=== PATIENT | female | born 1965 | race Asian ===

== ENCOUNTER 2018-07-20 21:00 | Emergency (ER) | payer OTHER ==
[~2018-07-20] VITALS: Ht 152.4 cm; Wt 54.5 kg
[2018-07-20 22:55] LABS: BASOPHILS % 0.6 % (0.0-2.0); CLARITY URINE CLEAR (CLEAR); COLOR URINE YELLOW (YELLOW); EOSINOPHILS % 1.9 % (0.0-5.0); HEMATOCRIT. 38.8 % (36.0-48.0); HEMOGLOBIN. 13.2 g/dL (12.0-16.0); KETONES URINE NEGATIVE (NEGATIVE); LEUKOCYTE ESTERASE URINE NEGATIVE (NEGATIVE); LYMPHOCYTES % 45.1 % (20.0-50.0); MEAN CORPUSCULAR HEMOGLOBIN 29.3 pg (28.0-32.0); MEAN CORPUSCULAR VOLUME 86.2 fL (81.0-99.0); MEAN PLATELET VOLUME 7.6 fl (7.4-10.4); MONOCYTES % 5.9 % (2.0-8.0); NEUTROPHILS % 46.5 % (40.0-76.0); NITRITE URINE NEGATIVE (NEGATIVE); OCCULT BLOOD URINE 1+ (NEGATIVE); PH URINE 5.5 (4.5-8.0); PLATELET 253 x1000/uL (130-400); PROTEIN URINE NEGATIVE (NEGATIVE); RED BLOOD CELL COUNT 4.51 mill/uL (4.2-5.4); RED CELL DISTRIBUTION WIDTH 13.4 % (11.6-14.6); UROBILINOGEN URINE 0.2 E.U./dL (0.2-1.0)
[2018-07-20 23:01] LABS: CHLORIDE 105 mEq/L (98-107)
[2018-07-20] MEDS ORDERED: AMLODIPINE 5MG TABLET PO ONE (23:15)
[2018-07-21] MEDS ORDERED: TRIAMTERENE/HYDROCHLOROTHIAZIDE 37.5/25MG CAPSULE PO ONE (01:45)
[2018-07-21 03:56] VITALS: BP 145/88
== END 2018-07-21 03:57 | disposition home or self-care (01) ==
LOC: ER 21:00
DX: R03.0 Elevated blood-pressure reading, without diagnosis of hypertension (principal); F41.9 Anxiety disorder, unspecified; Z90.49 Acquired absence of other specified parts of digestive tract
CPT/HCPCS: 36415; 80048; 99283

== ENCOUNTER 2020-08-25 21:55 | Emergency (ER) | payer OTHER ==
[~2020-08-25] VITALS: Ht 144.8 cm; Wt 52.0 kg
[2020-08-25] MEDS ORDERED: OFLO5DRO4 RIGHT EAR (23:41)
[2020-08-25] MEDS ORDERED: IBUPROFEN 400MG TABLET PO ONE (23:45)
[2020-08-26 00:05] VITALS: BP 155/87
== END 2020-08-26 00:07 | disposition home or self-care (01) ==
LOC: ER 21:55
DX: H60.91 Unspecified otitis externa, right ear (principal)
CPT/HCPCS: 99283